=== PATIENT | male | born 1940 | race Caucasian/White ===

== ENCOUNTER 2016-08-04 14:31 | Emergency (ER) | payer OTHER ==
[~2016-08-04] VITALS: Ht 167.6 cm; Wt 67.4 kg
[~2016-08-04 14:31] MED LIST: ATOR40TA16 PO; CHOL1TAB PO; CITA20TA4 PO; COQ-30CA2 PO; FINA5TAB2 PO; LEVO50TA4 PO; MIDO10TA PO; RENACAP2 PO; TAMS0.4C4 PO
[2016-08-04 14:40] VITALS: BP 113/52; PULSE 98; RESP 20; TEMP 98.3; O2SAT 97
[2016-08-04] MEDS ORDERED: POTA10SO12 PO (15:27)
[2016-08-04] MEDS ORDERED: SEVEL800 PO (15:27)
[2016-08-04] MEDS ORDERED: CHLO25CA2 PO (15:27)
[2016-08-04] MEDS ORDERED: MIRA33504 PO (15:27)
[2016-08-04] MEDS ORDERED: CALC1CAP PO (15:27)
[2016-08-04] MEDS ORDERED: MEGASUS2 PO (15:27)
[2016-08-04] MEDS ORDERED: SODIUM CHLORIDE 0.9% FLUSH 5 ML FLUSH IVF PRN (15:30)
--- NOTE | 2016-08-04 15:37 | PD ---
HPI Chief Complaint: Respiratory Symptoms Time Seen by Provider: 15:10 Travel History International Travel<30 days: No Contact w/Intl Traveler<30days: No Traveled to known affect area: No History of Present Illness HPI Patient is a 75-year-old male who presents to emergency room with complaints of shortness of breath. Patient reports that he has been feeling short of breath for the past 2 months. Patient reports that he has follow-up with his primary care doctor who performed a workup on him and ultimately sent [facility] to [facility] shift [facility] for further evaluation of his shortness of breath. Patient reports that he did follow up with Dr. Dobbs in the office, he had a echocardiogram performed as well as a stress test which were all negative. Patient reports that he was told to follow-up in the ER and was told that his shortness of breath was not due to his heart. Patient reports that he has been feeling increasingly short of breath and no one can figure out why he is so sob. 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 His supervisor [employer] department is Dr Murguia and Dr. Nair. Denies fever/chills. Denies cough/congestion. Denies n/v. Patient also reports that he has been getting hiccups at nighttime. Patient reports that every night, hiccups come on by himself, reports that he hiccups so much, it takes his breath away. Patient currently without any hiccups at this time. Denies chest pain. No cough/congestion. PFSH Past Medical History Arthritis: No Asthma: No Autoimmune Disease: No Heart Rhythm Problems: No Cancer: Yes (AMLOIDOSIS) Cardiovascular Problems: Yes High Cholesterol: Yes Chest Pain: No Congestive Heart Failure: No COPD: No Cerebrovascular Accident: Yes (TIA) Diabetes: No Diminished Hearing: No Endocrine: Yes Gastrointestinal Disorders: Yes (ACID REFLUX) GERD: Yes Genitourinary: No Headaches: No Hepatitis: No Hiatal Hernia: No Hypertension: Yes Immune Disorder: Yes (AMYLOIDOSIS) Implanted Vascular Access Dvce: No Kidney Stones: No Musculoskeletal: No Psychiatric: No Reproductive: No Respiratory: No Migraines: No Renal Failure: No Seizures: No Sleep Apnea: No Thyroid Disease: Yes (HYPO) Ulcer: No Past Surgical History Abdominal Surgery: No AICD: No Body Medical Devices: PORT IN UPPER R CHEST (2011) Cardiac Surgery: No Ear Surgery: No Endocrine Surgery: No Eye Surgery: Yes (CATARRACTS) Genitourinary Surgery: No Gynecologic Surgery: No Neurologic Surgery: No Oral Surgery: No Pacemaker: No Thoracic Surgery: No Other Surgery: Yes (peritoneal dialysis catheter placement) Social History Alcohol Use: No Tobacco Use: No (QUIT 1974) Substance Use: No Allergies-Medications (Allergen,Severity, Reaction): Coded Allergies: No Known Allergies (Unverified , 08/04/16) Reported Meds & Prescriptions Reported Meds & Active Scripts Active Reported Chlordiazepoxide (Chlordiazepoxide HCl) 25 Mg Cap 25 Mg PO HS Potassium Chloride Liq (Potassium Chloride) 20 Meq/15 Ml Soln 20 Meq PO DAILY Renvela (Sevelamer Carbonate) 800 Mg Tab 800 Mg PO TID PRN Calcium Acetate (Phosphate Binder) 667 Mg Cap 667 Mg PO TID Megace ES Liq (Megestrol ES Liq) 625 Mg/5 Ml Susp 625 Mg PO DAILY Miralax Powder (Polyethylene Glycol 3350 Powder) 17 Gm Powd 17 Gm PO DAILY Mix and dissolve one measuring cap-ful (17 grams) in water or juice. D3-1000 (Cholecalciferol) 1,000 Unit Tab 1 Tab PO BID Coq-10 (Coenzyme Q10 (Ubidecarenone)) 30 Mg Cap 200 Mg PO HS Renal Vitamin (B-Complex W/ C & Folic Acid) 1 Cap 1 Cap PO DAILY If on dialysis, take after treatment. Tamsulosin (Tamsulosin HCl) 0.4 Mg Cap 0.4 Mg PO HS Citalopram (Citalopram Hydrobromide) 20 Mg Tab 20 Mg PO HS Finasteride 5 Mg Tab 5 Mg PO DAILY Do not crush. Levothyroxine (Levothyroxine Sodium) 50 Mcg Tab 50 Mcg PO DAILY Midodrine 10 Mg Tab 20 Mg PO BID Atorvastatin (Atorvastatin Calcium) 40 Mg Tab 40 Mg PO HS Review of Systems General / Constitutional: No: Fever Eyes: No: Visual changes HENT: No: Headaches Cardiovascular: No: Chest Pain or Discomfort Respiratory: Positive: Shortness of Breath Gastrointestinal: No: Abdominal Pain Genitourinary: No: Dysuria Musculoskeletal: No: Pain Skin: No Rash Neurologic: No: Weakness Psychiatric: No: Depression Endocrine: No: Polydipsia Hematologic/Lymphatic: No: Easy Bruising Physical Exam Narrative GENERAL: No acute distress, nontoxic SKIN: Warm and dry. Pale appearing HEAD: Atraumatic. Normocephalic. EYES: No injection or drainage. ENT: No nasal bleeding or discharge. Mucous membranes pink and moist. NECK: Trachea midline. No JVD. CARDIOVASCULAR: Regular rate and rhythm. No murmur appreciated. RESPIRATORY: No accessory muscle use. Clear to auscultation. Breath sounds equal bilaterally. GASTROINTESTINAL: Abdomen soft, non-tender, nondistended. Hepatic and splenic margins not palpable. MUSCULOSKELETAL: No obvious deformities. No clubbing. No cyanosis. No edema. NEUROLOGICAL: Awake and alert. No obvious cranial nerve deficits. Motor grossly within normal limits. Normal speech. PSYCHIATRIC: Appropriate mood and affect; insight and judgment normal. Data Data Last Documented VS Vital Signs Date Time Temp Pulse Resp B/P Pulse Ox O2 Delivery O2 Flow Rate FiO2 08/04/16 18:54 81 18 136/78 96 Nasal Cannula 1 08/04/16 14:40 98.3 Orders Electrocardiogram (08/04/16 15:22) B-Type Natriuretic Peptide (08/04/16 15:22) Ckmb (Isoenzyme) Profile (08/04/16 15:22) Complete Blood Count With Diff (08/04/16 15:22) Comprehensive Metabolic Panel (08/04/16 15:22) Prothrombin Time / Inr (Pt) (08/04/16 15:22) Act Partial Throm Time (Ptt) (08/04/16 15:22) Troponin I (08/04/16 15:22) Chest, Single Ap (08/04/16 15:22) Ecg Monitoring (08/04/16 15:22) Iv Access Insert/Monitor (08/04/16 15:22) Oximetry (08/04/16 15:22) Sodium Chloride 0.9% Flush (Ns Flush) (08/04/16 15:30) Arterial Blood Gas (Abg) (08/04/16 ) CKMB (08/04/16 15:35) CKMB% (08/04/16 15:35) Ventilation & Perfusion Scan (08/04/16 ) Us Leg Venous Doppler Bilat (08/04/16 ) Calcium Gluconate Inj (Calcium Gluconate (08/04/16 17:00) Labs Laboratory Tests Test 08/04/16 08/04/16 15:35 16:15 White Blood Count 11.6 TH/MM3 Red Blood Count 3.24 MIL/MM3 Hemoglobin 10.4 GM/DL Hematocrit 30.7 % Mean Corpuscular Volume 94.7 FL Mean Corpuscular Hemoglobin 32.0 PG Mean Corpuscular Hemoglobin 33.8 % Concent Red Cell Distribution Width 15.7 % Platelet Count 246 TH/MM3 Mean Platelet Volume 6.4 FL Neutrophils (%) (Auto) 71.2 % Lymphocytes (%) (Auto) 19.1 % Monocytes (%) (Auto) 7.6 % Eosinophils (%) (Auto) 0.4 % Basophils (%) (Auto) 1.7 % Neutrophils # (Auto) 8.3 TH/MM3 Lymphocytes # (Auto) 2.2 TH/MM3 Monocytes # (Auto) 0.9 TH/MM3 Eosinophils # (Auto) 0.0 TH/MM3 Basophils # (Auto) 0.2 TH/MM3 CBC Comment DIFF FINAL Differential Comment Prothrombin Time 10.7 SEC Prothromb Time International 1.0 RATIO Ratio Activated Partial 21.3 SEC Thromboplast Time Sodium Level 147 MEQ/L Potassium Level 4.3 MEQ/L Chloride Level 110 MEQ/L Carbon Dioxide Level 23.2 MEQ/L Anion Gap 14 MEQ/L Blood Urea Nitrogen 74 MG/DL Creatinine 8.00 MG/DL Estimat Glomerular Filtration 7 ML/MIN Rate Random Glucose 129 MG/DL Calcium Level 7.3 MG/DL Protein Corrected Calcium 9.0 MG/DL Total Bilirubin 0.3 MG/DL Aspartate Amino Transf 20 U/L (AST/SGOT) Alanine Aminotransferase 44 U/L (ALT/SGPT) Alkaline Phosphatase 36 U/L Total Creatine Kinase 124 U/L Creatine Kinase MB 2.6 NG/ML Troponin I 0.06 NG/ML B-Type Natriuretic Peptide 94 PG/ML Total Protein 4.2 GM/DL Albumin 1.7 GM/DL Blood Gas Puncture Site LT RADIAL Blood Gas Patient Temperature 98.6 Blood Gas HCO3 21 mmol/L Blood Gas Base Excess -2.3 mmol/L Blood Gas Oxygen Saturation 93 % Arterial Blood pH 7.43 Arterial Blood Partial 33 mmHG Pressure CO2 Arterial Blood Partial 81 mmHG Pressure O2 Arterial Blood Oxygen Content 13.1 Vol % Arterial Blood 1.6 % Carboxyhemoglobin Arterial Blood Methemoglobin 1.3 % Blood Gas Hemoglobin 9.9 G/DL Oxygen Delivery Device ROOM AIR Blood Gas Inspired Oxygen 21 % MDM Medical Decision Making Medical Screen Exam Complete: Yes Emergency Medical Condition: Yes Interpretation(s) Vital Signs Date Time Temp Pulse Resp B/P Pulse Ox O2 Delivery O2 Flow Rate FiO2 08/04/16 14:40 98.3 98 20 113/52 97 Differential Diagnosis PE, pneumothorax, pneumonia, arrhythmia, electrolyte abnormality, anemia Narrative Course Patient is 75-year-old male with history of end-stage renal disease on peritoneal dialysis - presents to emergency room for evaluation of shortness of breath. Patient reports that he has been feeling short of breath for the past 2 months. Patient reports that symptoms have been getting progressively worse. Patient reports that he has followed-up with his primary care doctor as well as [facility] shift lead for his symptoms and reports that no one can tell him why he is so short of breath. Patient here for evaluation of symptoms. Patient 97% on Room air, vss, pulse 98, bp 113/52. ABG, xray of chest ordered. Will continue to monitor patient. EKG at 1543: nsr at 81bpm, qt/qtc: 400/436, no acute st or t wave changes CBC WBC 11.6 Hemoglobin 10.4 Hematocrit 30.7 Platelets 246 BMP Sodium 147 Chloride 110 Potassium 4.3 BUN 14 Creatinine 8.0 Calcium 7.3 BNP 94 Troponin 0.06 Chest x-ray: Mild hyperinflation with some bullae otherwise negative for acute process Patient reevaluated, patient reports that he still feels short of breath, feels the same as he did before. Understands pending studies Ultrasound of legs as well as VQ scan pending Last Impressions Lower Extremity Ultrasound 08/04/16 0000 Signed Impressions: Service Date/Time: Thursday, August 04, 2016 16:45 - CONCLUSION: No evidence of lower extremity DVT on the right or left. Medhat Kelly MD All labs and all studies reviewed with patient and his if at bedside. Patient with a mildly elevated troponin of 0.06 - most likely from end-stage renal disease as patient is on peritoneal dialysis daily. Patient with no complaints at this time. Patient reports that he is feeling better. I discussed need to follow-up with his primary care doctor. Signs and symptoms of when to return to the emergency room. Diagnosis Primary Impression: Shortness of breath Patient Instructions: General Instructions Additional Instructions: Please give patient a copy of all labs and all studies at discharge Please return to emergency room as needed Please follow-up with your primary care doctor and bring your labs and studies to the office for follow-up Please return to emergency room if symptoms progress or worsen Disposition: 01 DISCHARGE HOME Condition: Stable Linda Pinto DO Aug 04, 2016 15:37
[2016-08-04 15:45] VITALS: O2SAT 97
[2016-08-04 15:46] LABS: AUTOMATED NEUTROPHIL # 8.3 TH/MM3 (1.8-7.7); BASOPHIL # 0.2 TH/MM3 (0-0.2); BASOPHIL % 1.7 % (0.0-2.0); EOSINOPHIL % 0.4 % (0.0-4.0); HEMATOCRIT 30.7 % (39.0-51.0); LYMPH % 19.1 % (9.0-44.0); LYMPHOCYTE # 2.2 TH/MM3 (1.0-4.8); MEAN CELL VOLUME 94.7 FL (80.0-100.0); MEAN CORPUSCULAR HGB CONC 33.8 % (32.0-36.0); MONO % 7.6 % (0.0-8.0); NEUT % 71.2 % (16.0-70.0); PLATELET COUNT 246 TH/MM3 (150-450); RED BLOOD COUNT 3.24 MIL/MM3 (4.50-5.90); RED CELL DISTRIBUTION WIDTH 15.7 % (11.6-17.2); WHITE BLOOD COUNT 11.6 TH/MM3 (4.0-11.0)
[2016-08-04 15:47] LABS: HEMO FLAGS DIFF FINAL
[2016-08-04 15:55] VITALS: O2SAT 95
[2016-08-04 16:00] VITALS: BP 133/64; PULSE 81; RESP 22; O2SAT 95
[2016-08-04 16:07] LABS: CHLORIDE 110 MEQ/L (98-107); POTASSIUM 4.3 MEQ/L (3.5-5.1); SODIUM (NA) 147 MEQ/L (136-145)
[2016-08-04 16:12] LABS: APTT (PATIENT) 21.3 SEC (24.3-30.1); PROTHROMBIN TIME - PATIENT 10.7 SEC (9.8-11.6)
--- NOTE | 2016-08-04 16:12 | RADHPO ---
EXAM DATE/TIME: 08/04/2016 15:50 [facility] COMPARISON: CHEST SINGLE AP, May 28, 2016, 16:21. INDICATIONS: Shortness of breath. MEDICAL HISTORY: Hypertension. Hypercholesterolemia. Hypothyroidism. TIA, Hyperlipidemia, Shingles, GERD, Renal fa ilure, Enlarged prostate, Anxiety, Amyloidosis, Anemia SURGICAL HISTORY: Tonsillectomy. Dialysis cath, Bone marrow biopsy, Kidney biopsy, Infusaport ENCOUNTER: Initial ACUITY: 1 day PAIN SCORE: 1/10 LOCATION: Bilateral chest FINDINGS: [id number] is in good position on the right. Old rib fractures are seen on the left. Minimal bul lae are noted. Heart and pulmonary vascularity is normal. CONCLUSION: Mild hyperinflation with some bullae, otherwise negative for an acute process. Rock Evans MD FACR on August 04, 2016 at 16:05 Board Certified Radiologist. This report was verified electronically.
[2016-08-04 16:15] VITALS: O2SAT 96
[2016-08-04 16:23] LABS: BLOOD GAS BASE EXCESS -2.3 mmol/L (-2-2); BLOOD GAS CARBOXYHEMOGLOBIN 1.6 % (0-4); BLOOD GAS HCO3 21 mmol/L (22-26); BLOOD GAS METHEMOGLOBIN 1.3 % (0-2); BLOOD GAS O2 HGB SATURATION 93 % (90-100); BLOOD GAS OXYGEN CONTENT 13.1 Vol % (12.0-20.0); BLOOD GAS PCO2 33 mmHG (38-42); BLOOD GAS PO2 81 mmHG (61-120); BLOOD GAS TOTAL HGB 9.9 G/DL (12.0-16.0); CRITICAL VALUE NO; DRAW SITE LT RADIAL; FIO2 21 %; NUMBER OF ARTERIAL PUNCTURES 1; OXYGEN DEVICE ROOM AIR; STAT YES; TEMP CORR TO 98.6; ULNAR PULSE PRESENT
[2016-08-04 16:27] LABS: ALKALINE PHOSPHATASE 36 U/L (45-117); ANION GAP 14 MEQ/L (5-15); AST (GOT) 20 U/L (15-37); BICARBONATE 23.2 MEQ/L (21.0-32.0); BLOOD UREA NITROGEN 74 MG/DL (7-18); CREATINE KINASE 124 U/L (39-308); GLOMERULAR FILTRATION RATE 7 ML/MIN (>89); TOTAL BILIRUBIN ADULT 0.3 MG/DL (0.2-1.0)
[2016-08-04 16:28] LABS: ALT (GPT) 44 U/L (12-78)
[2016-08-04 16:58] LABS: CKMB 2.6 NG/ML (0.5-3.6)
[2016-08-04] MEDS ORDERED: CALCIUM GLUCONATE INJ 1 GM in DEXTROSE 5% IN WATER 100ML INJ 100 ML IV ONE ×2 (17:00)
--- NOTE | 2016-08-04 17:47 | RADHPO ---
EXAM DATE/TIME: 08/04/2016 16:45 [facility] COMPARISON: No previous studies available for comparison. INDICATIONS : Bilateral leg swelling. MEDICAL HISTORY : Hypercholesterolemia. Gastroesophageal reflux disease. Hypothyroidism. Hypertension. Tremors. UTI. Re nal failure. Shingles. Anemia. Amyloidosis. SURGICAL HISTORY : Tonsillectomy. Dialysis. Kidney biopsy. Bone marrow biopsy. Right port placement. ENCOUNTER: Initial ACUITY: 3 days PAIN SCORE: 3/10 LOCATION: Bilateral legs. TECHNIQUE: Venous ultrasound of the left and right leg was performed from the inguinal ligament to the proximal calf. Real-time, color Doppler and spectral tracing, compression and augmentation techniques were us ed. FINDINGS: RIGHT LEG: There is normal compressibility of the deep venous system from the inguinal region to the proximal ca lf. No echogenic clot is seen in the lumen of the common femoral, femoral, popliteal, and posterior tibial veins. There is a normal response of the venous system to proximal and distal augmentation an d respiration. LEFT LEG: There is normal compressibility of the deep venous system from the inguinal region to the proximal ca lf. No echogenic clot is seen in the lumen of the common femoral, femoral, popliteal, and posterior tibial veins. There is a normal response of the venous system to proximal and distal augmentation an d respiration. CONCLUSION: No evidence of lower extremity DVT on the right or left. Medhat Klely MD on August 04, 2016 at 17:45 Board Certified Radiologist. This report was verified electronically.
[2016-08-04 18:54] VITALS: BP 136/78; PULSE 81; RESP 18; O2SAT 96
--- NOTE | 2016-08-04 18:56 | RADHPO ---
EXAM DATE/TIME: 08/04/2016 18:33 [facility] COMPARISON: No previous studies available for comparison. INDICATIONS : Dyspnea for two months. DOSE: 8.5 mCi Tc99m MAA IV 0.93 mCi Tc99m DTPA aerosol MEDICAL HISTORY : Renal disease, end stage. Hypertension. Hypothyroidism. Amloidosis and essential tremors. SURGICAL HISTORY : Cataracts and port. ENCOUNTER: Initial ACUITY: 2 months PAIN SCALE: 0/10 LOCATION: chest TECHNIQUE: Following five minutes of tidal breathing of DTPA aerosol, planar images of the lungs were performed in eight projections. The patient was then injected with MAA, and eight-view perfusion scan was perf ormed. FINDINGS: There is a homogeneous pattern of aerosol delivery to the periphery of both lungs. No focal ventilat ory defects are seen. The perfusion lung scan demonstrates a homogenous pattern of uptake in both lungs. No segmental or s ubsegmental defects are seen. CONCLUSION: Normal examination. Amrita Banks MD on August 04, 2016 at 18:55 Board Certified Radiologist. This report was verified electronically.
--- NOTE | 2016-08-06 12:06 | EKG ---
Date Performed: 08/04/2016 Time Performed: 15:43:10 PTAGE: 75 years EKG: Sinus rhythm Leftward axis Lateral T wave changes are nonspecific Since previous tracing, no significant change n oted Borderline ECG PREVIOUS TRACING : 05/28/2016 15.25 DOCTOR: Bro Barry Interpretating Date/Time 08/06/2016 12:05:48
== END 2016-08-04 20:11 | disposition home or self-care (01) ==
LOC: PHED 14:31
DX: R06.02 Shortness of breath (principal); R94.31 Abnormal electrocardiogram [ECG] [EKG]; N18.6 End stage renal disease; E85.9 Amyloidosis, unspecified; E78.00 Pure hypercholesterolemia, unspecified; K21.9 Gastro-esophageal reflux disease without esophagitis; I12.0 Hypertensive chronic kidney disease with stage 5 chronic kidney disease or end stage renal disease; E07.9 Disorder of thyroid, unspecified; Z86.73 Personal history of transient ischemic attack (TIA), and cerebral infarction without residual deficits
CPT/HCPCS: 36600; 71010; 78582; 80053; 82550; 82552; 82805; 83880; 84484; 85025; 85610; 85730; 93005; 93970; 96365; 96366; 99285; A9540; A9567; J0610

== ENCOUNTER 2016-11-13 10:42 | Emergency (ER) | payer OTHER ==
[~2016-11-13] VITALS: Ht 167.6 cm; Wt 65.0 kg
[~2016-11-13 10:42] MED LIST changes: +CALC1CAP PO; +CHLO25CA2 PO; +MEGASUS2 PO; +MIRA33504 PO; +POTA10SO12 PO; +SEVEL800 PO
[2016-11-13 10:47] VITALS: BP 112/58; PULSE 106; RESP 20; TEMP 97.1; O2SAT 96
[2016-11-13] MEDS ORDERED: [UNRECOGNIZED DRUG - OTHER] (11:06)
[2016-11-13 11:15] VITALS: BP 133/59; PULSE 98; RESP 15; O2SAT 93
[2016-11-13] MEDS ORDERED: SODIUM CHLORIDE 0.9% FLUSH 10 ML FLUSH IV FLUSH PRN (11:15)
[2016-11-13 11:22] VITALS: O2SAT 94
[2016-11-13 11:25] LABS: AUTOMATED NEUTROPHIL # 9.6 TH/MM3 (1.8-7.7); BASOPHIL % 0.4 % (0.0-2.0); EOSINOPHIL # 0.1 TH/MM3 (0-0.4); EOSINOPHIL % 0.6 % (0.0-4.0); HEMATOCRIT 31.5 % (39.0-51.0); LYMPH % 16.4 % (9.0-44.0); MEAN CELL VOLUME 97.3 FL (80.0-100.0); MEAN CORPUSCULAR HEMOGLOBIN 32.5 PG (27.0-34.0); MEAN CORPUSCULAR HGB CONC 33.4 % (32.0-36.0); MONO % 4.9 % (0.0-8.0); NEUT % 77.7 % (16.0-70.0); PLATELET COUNT 284 TH/MM3 (150-450); RED BLOOD COUNT 3.23 MIL/MM3 (4.50-5.90); RED CELL DISTRIBUTION WIDTH 16.1 % (11.6-17.2); WHITE BLOOD COUNT 12.3 TH/MM3 (4.0-11.0)
[2016-11-13 11:27] LABS: HEMO FLAGS DIFF FINAL
[2016-11-13 11:36] LABS: BICARBONATE 22.9 MEQ/L (21.0-32.0)
[2016-11-13 12:00] VITALS: BP 106/57; PULSE 88; RESP 15; O2SAT 94
--- NOTE | 2016-11-13 12:33 | PD ---
HPI Chief Complaint: Cardiac Complaint Time Seen by Provider: 10:52 Travel History International Travel<30 days: No Contact w/Intl Traveler<30days: No Traveled to known affect area: No History of Present Illness HPI 76-year-old male arrives due to orthostatic tachycardia which occurred this morning. Evidently his heart rate was about 75 and he stood up and increased to 150. He did not lose consciousness or fall or feel dizzy. The who provides most of the history states that it has since resolved since arriving to the ER. The patient has kidney disease and undergoes peritoneal dialysis nightly. He has been doing this every single night. For the last 2 days he has had worsening of his essential tremor. He states it comes and goes. He states he's tried various medications for it and none helps. No additional complaint offered. Urination normal. No chest pain or short of breath. No abdominal pain. PFSH Past Medical History Arthritis: No Asthma: No Autoimmune Disease: No Heart Rhythm Problems: No Cancer: Yes (Amyloidosis ) Cardiovascular Problems: Yes High Cholesterol: Yes Chest Pain: No Congestive Heart Failure: No COPD: No Cerebrovascular Accident: Yes (TIA) Diabetes: No Dialysis: Yes (PARITNEAL) Diminished Hearing: No Endocrine: Yes Gastrointestinal Disorders: Yes (ACID REFLUX) GERD: Yes Genitourinary: No Headaches: No Hepatitis: No Hiatal Hernia: No Hypertension: Yes Immune Disorder: Yes (AMYLOIDOSIS) Implanted Vascular Access Dvce: No Kidney Stones: No Musculoskeletal: No Neurologic: Yes (Numbness feet) Psychiatric: No Reproductive: No Respiratory: No Migraines: No Renal Failure: No Seizures: No Sleep Apnea: No Thyroid Disease: Yes (Hypo-) Ulcer: No Past Surgical History Abdominal Surgery: No AICD: No Body Medical Devices: PD catheter, RU chest port Cardiac Surgery: No Ear Surgery: No Endocrine Surgery: No Eye Surgery: Yes (Cataracts ) Genitourinary Surgery: No Gynecologic Surgery: No Neurologic Surgery: No Oral Surgery: No Pacemaker: No Thoracic Surgery: No Other Surgery: Yes (PD catheter placement, chemotherapy port placement RU chest , kidney BX) Social History Alcohol Use: No Tobacco Use: No (QUIT 1974) Substance Use: No Allergies-Medications (Allergen,Severity, Reaction): Coded Allergies: No Known Allergies (Unverified , 11/13/16) Reported Meds & Prescriptions Reported Meds & Active Scripts Active Reported [Miranol] Potassium Chloride Liq (Potassium Chloride) 20 Meq/15 Ml Soln 10 Meq PO DAILY Renvela (Sevelamer Carbonate) 800 Mg Tab 800 Mg PO TID PRN Miralax Powder (Polyethylene Glycol 3350 Powder) 17 Gm Powd 17 Gm PO DAILY Mix and dissolve one measuring cap-ful (17 grams) in water or juice. D3-1000 (Cholecalciferol) 1,000 Unit Tab 1 Tab PO BID Coq-10 (Coenzyme Q10 (Ubidecarenone)) 30 Mg Cap 200 Mg PO HS Tamsulosin (Tamsulosin HCl) 0.4 Mg Cap 0.4 Mg PO HS Finasteride 5 Mg Tab 5 Mg PO DAILY Do not crush. Levothyroxine (Levothyroxine Sodium) 50 Mcg Tab 50 Mcg PO DAILY Midodrine 10 Mg Tab 10 Mg PO BID Atorvastatin (Atorvastatin Calcium) 40 Mg Tab 40 Mg PO HS Review of Systems Except as stated in HPI: all other systems reviewed are Neg General / Constitutional: No: Fever Neurologic: Positive: Tremor Physical Exam Narrative GENERAL: 76-year-old male pleasant, conversant, in no marked distress SKIN: Focused skin assessment warm/dry. HEAD: Atraumatic. Normocephalic. EYES: Pupils equal and round. No scleral icterus. No injection or drainage. ENT: No nasal bleeding or discharge. Mucous membranes pink and moist. NECK: Trachea midline. No JVD. CARDIOVASCULAR: Regular rate and rhythm. No murmur appreciated. RESPIRATORY: No accessory muscle use. Clear to auscultation. Breath sounds equal bilaterally. GASTROINTESTINAL: Abdomen soft, non-tender, nondistended. Hepatic and splenic margins not palpable. Peritoneal dialysis tube in the right abdomen appears clean dry and intact at site of insertion. MUSCULOSKELETAL: No obvious deformities. No clubbing. No cyanosis. No edema. NEUROLOGICAL: Awake and alert. No obvious cranial nerve deficits. There is a generalized fine tremor. Speech memory mentation normal. PSYCHIATRIC: Appropriate mood and affect; insight and judgment normal. Data Data Last Documented VS Vital Signs Date Time Temp Pulse Resp B/P Pulse Ox O2 Delivery O2 Flow Rate FiO2 11/13/16 13:13 86 15 106/70 96 11/13/16 11:22 Room Air 11/13/16 10:47 97.1 Heart rate 86 at 12:30 p.m. Orders Basic Metabolic Panel (Bmp) (11/13/16 11:10) Complete Blood Count With Diff (11/13/16 11:10) Iv Access Insert/Monitor (11/13/16 11:10) Ecg Monitoring (11/13/16 11:10) Oximetry (11/13/16 11:10) Sodium Chloride 0.9% Flush (Ns Flush) (11/13/16 11:15) Potassium Chloride (Kcl) (11/13/16 12:45) Electrocardiogram (11/13/16 ) Labs Laboratory Tests Test 11/13/16 11:19 White Blood Count 12.3 TH/MM3 Red Blood Count 3.23 MIL/MM3 Hemoglobin 10.5 GM/DL Hematocrit 31.5 % Mean Corpuscular Volume 97.3 FL Mean Corpuscular Hemoglobin 32.5 PG Mean Corpuscular Hemoglobin 33.4 % Concent Red Cell Distribution Width 16.1 % Platelet Count 284 TH/MM3 Mean Platelet Volume 6.2 FL Neutrophils (%) (Auto) 77.7 % Lymphocytes (%) (Auto) 16.4 % Monocytes (%) (Auto) 4.9 % Eosinophils (%) (Auto) 0.6 % Basophils (%) (Auto) 0.4 % Neutrophils # (Auto) 9.6 TH/MM3 Lymphocytes # (Auto) 2.0 TH/MM3 Monocytes # (Auto) 0.6 TH/MM3 Eosinophils # (Auto) 0.1 TH/MM3 Basophils # (Auto) 0.0 TH/MM3 CBC Comment DIFF FINAL Differential Comment Sodium Level 140 MEQ/L Potassium Level 3.0 MEQ/L Chloride Level 103 MEQ/L Carbon Dioxide Level 22.9 MEQ/L Anion Gap 14 MEQ/L Blood Urea Nitrogen 56 MG/DL Creatinine 9.50 MG/DL Estimat Glomerular Filtration 5 ML/MIN Rate Random Glucose 110 MG/DL Calcium Level 8.1 MG/DL [facility] Medical Decision Making Medical Screen Exam Complete: Yes Emergency Medical Condition: Yes Medical Record Reviewed: Yes Differential Diagnosis Electrolyte imbalance, uremia, arrhythmia, essential tremor Narrative Course CBC & BMP Diagram 11/13/16 11:19 EKG reveals a sinus rhythm with a rate of 104 The patient's says he was discharged from [facility] just 2 weeks ago where. Extensive workup was done. He also underwent a brain MR just recently. EKG was performed and reveals a sinus rhythm with PACs, rate 85 Diagnosis Primary Impression: Tremor Additional Impression: Hypokalemia Referrals: Terry Nair MD 2 days Additional Instructions: You have a choice when it comes to health care, and we are glad that you chose [facility]. Hopefully, we have met your expectations on today's visit. You are welcome to return to [facility] at any time, as we are committed to meeting the health care needs of our community. Med/Other Pt SpecificInfo: No Change to Meds Disposition: 01 DISCHARGE HOME Condition: Yordy Gutierrez MD November 13, 2016 12:33
[2016-11-13] MEDS ORDERED: POTASSIUM CHLORIDE 20 MEQ CONTROLLED RELEASE TAB PO ONE (12:45)
[2016-11-13 13:13] VITALS: BP 106/70
--- NOTE | 2016-11-14 16:13 | EKG ---
Date Performed: 11/13/2016 Time Performed: 10:51:18 PTAGE: 76 years EKG: Sinus tachycardia with PAC(s) Left axis deviation Compared to previous tracing sinus rate h as increased Borderline ECG PREVIOUS TRACING : 08/04/2016 15.43 DOCTOR: Roverto Husain Interpretating Date/Time 11/14/2016 16:12:35
--- NOTE | 2016-11-14 16:14 | EKG ---
Date Performed: 11/13/2016 Time Performed: 12:43:54 PTAGE: 76 years EKG: Sinus rhythm with PAC(s) Left axis deviation Compared to the previous tracing sinus rate has decreased Borderline ECG PREVIOUS TRACING : 11/13/2016 10.51 DOCTOR: Roverto Husain Interpretating Date/Time 11/14/2016 16:12:49
== END 2016-11-13 13:15 | disposition home or self-care (01) ==
LOC: PHED 10:42
DX: R25.1 Tremor, unspecified (principal); E87.6 Hypokalemia; I49.1 Atrial premature depolarization; R00.0 Tachycardia, unspecified; E78.00 Pure hypercholesterolemia, unspecified; K21.9 Gastro-esophageal reflux disease without esophagitis; E85.9 Amyloidosis, unspecified; N28.9 Disorder of kidney and ureter, unspecified; Z86.73 Personal history of transient ischemic attack (TIA), and cerebral infarction without residual deficits
CPT/HCPCS: 80048; 85025; 93005

== ENCOUNTER 2017-02-21 17:24 | Inpatient (IN) | payer OTHER, MEDICARE ==
[~2017-02-21] VITALS: Ht 170.2 cm; Wt 71.3 kg
[~2017-02-21 17:24] MED LIST changes: -CALC1CAP PO; -CHLO25CA2 PO; -CITA20TA4 PO; -MEGASUS2 PO; -RENACAP2 PO; +[UNRECOGNIZED DRUG - OTHER]
[2017-02-21 17:30] VITALS: BP 144/71; PULSE 88; RESP 20; TEMP 98.4; O2SAT 97
[2017-02-21] MEDS ORDERED: RENATAB6 PO (17:57)
[2017-02-21] MEDS ORDERED: CHOL1CAP32 (17:57)
[2017-02-21] MEDS ORDERED: MIRA3350 PO (17:57)
[2017-02-21] MEDS ORDERED: MAGO400T2 (17:57)
[2017-02-21] MEDS ORDERED: MEGE40SU PO (17:57)
[2017-02-21] MEDS ORDERED: SODIUM CHLORIDE 0.9% FLUSH 10 ML FLUSH IVF PRN (18:00)
[2017-02-21] MEDS ORDERED: RESP: ALBUTEROL 2.5 MG/3 ML NEB (SCH) INH ONE (18:00)
--- NOTE | 2017-02-21 18:12 | RADRPT ---
EXAM DATE/TIME: 02/21/2017 17:53 [facility] COMPARISON: CHEST SINGLE AP, August 04, 2016, 15:50. INDICATIONS : Short of breath. MEDICAL HISTORY : Hypertension. Hypercholesterolemia. Hypothyroidism. TIA, Hyperlipidemia, Shingles, GERD, Renal failur e, Enlarged prostate, Anxiety, Amyloidosis, Anemia. SURGICAL HISTORY : Tonsillectomy. Dialysis cath, Bone marrow biopsy, Kidney biopsy, Infusaport. ENCOUNTER: Initial ACUITY: 1 day PAIN SCORE: 5/10 LOCATION: Bilateral chest FINDINGS: A single portable frontal view of the chest shows motion artifact. A subclavian central line is seen on the right. Hypoinflation with left basilar atelectasis. No discrete infiltrate or effusion. Heart normal in size. Old left-sided rib fractures. CONCLUSION: Minimal left basilar atelectasis. Oneil Cruz Jr., MD on February 21, 2017 at 18:09 Board Certified Radiologist. This report was verified electronically.
--- NOTE | 2017-02-21 18:22 | PD ---
HPI Chief Complaint: Respiratory Symptoms Time Seen by Provider: 17:38 Travel History International Travel<30 days: No Contact w/Intl Traveler<30days: No Traveled to known affect area: No History of Present Illness HPI The patient is 76 years old. Nightly he undergoes peritoneal dialysis and has been doing so normally. Today he arrives very tired and fatigued and short of breath. Shortness of breath worsens significantly with exertion. He said no fever. The patient's notes he is more confused than normal although even at baseline he is somewhat slow to respond to questions. He's had no fever or cough. No vomiting or diarrhea has been observed. In the ER the patient states he feels "fine." The patient nonetheless appears slightly tachypneic. No abdominal pain. Renal: Dr Nair. He still makes urine. PFSH Past Medical History Arthritis: No Asthma: No Autoimmune Disease: No Heart Rhythm Problems: No Cancer: Yes (Amyloidosis ) Cardiovascular Problems: Yes High Cholesterol: Yes Chest Pain: No Congestive Heart Failure: No COPD: No Cerebrovascular Accident: Yes (TIA) Diabetes: No Dialysis: Yes (PARITNEAL) Diminished Hearing: No Endocrine: Yes Gastrointestinal Disorders: Yes (ACID REFLUX) GERD: Yes Genitourinary: No Headaches: No Hepatitis: No Hiatal Hernia: No Hypertension: Yes Immune Disorder: Yes (AMYLOIDOSIS) Implanted Vascular Access Dvce: No Kidney Stones: No Musculoskeletal: No Neurologic: Yes (Numbness feet) Psychiatric: No Reproductive: No Respiratory: No Migraines: No Renal Failure: No Seizures: No Sleep Apnea: No Thyroid Disease: Yes (Hypo-) Ulcer: No ?: Not Past Surgical History Abdominal Surgery: No AICD: No Body Medical Devices: PD catheter, RU chest port Cardiac Surgery: No Ear Surgery: No Endocrine Surgery: No Eye Surgery: Yes (Cataracts ) Genitourinary Surgery: No Gynecologic Surgery: No Neurologic Surgery: No Oral Surgery: No Pacemaker: No Thoracic Surgery: No Other Surgery: Yes (PD catheter placement, chemotherapy port placement RU chest , kidney BX) Social History Alcohol Use: No Tobacco Use: No (QUIT 1974) Substance Use: No Allergies-Medications (Allergen,Severity, Reaction): Coded Allergies: No Known Allergies (Unverified , 11/13/16) Reported Meds & Prescriptions Reported Meds & Active Scripts Active Azithromycin 250 Mg Tab 250 Mg PO DAILY 4 Days Reported Marie-Aditi Rx (B-Complex W/ C & Folic Acid) 1 Tab 1 Tab PO DAILY Magox 400 (Magnesium Oxide) 400 Mg Tablet Megestrol Liq (Megestrol Acetate) 40 Mg/Ml Susp 400 Mg PO DAILY D3-1000 (Cholecalciferol) 1,000 Unit Cap BID Miralax Powder (Polyethylene Glycol 3350 Powder) 17 Gm Powd 17 Gm PO DAILY Mix and dissolve one measuring cap-ful (17 grams) in water or juice. Potassium Chloride Liq (Potassium Chloride) 20 Meq/15 Ml Soln 10 Meq PO DAILY Renvela (Sevelamer Carbonate) 800 Mg Tab 800 Mg PO TID PRN Coq-10 (Coenzyme Q10 (Ubidecarenone)) 30 Mg Cap 200 Mg PO HS Finasteride 5 Mg Tab 5 Mg PO DAILY Do not crush. Levothyroxine (Levothyroxine Sodium) 50 Mcg Tab 50 Mcg PO DAILY Midodrine 10 Mg Tab 10 Mg PO BID Atorvastatin (Atorvastatin Calcium) 40 Mg Tab 40 Mg PO HS Review of Systems Except as stated in HPI: all other systems reviewed are Neg General / Constitutional: No: Fever Physical Exam Narrative GENERAL: 76-year-old male well-nourished well-developed, short of breath at rest SKIN: Warm and dry. HEAD: Atraumatic. Normocephalic. EYES: Pupils equal and round. No scleral icterus. No injection or drainage. ENT: No nasal bleeding or discharge. Mucous membranes pink and moist. NECK: Trachea midline. No JVD. CARDIOVASCULAR: Regular rate and rhythm. RESPIRATORY: Coarse breath sounds at the bases bilaterally. Minimal tachypnea. GASTROINTESTINAL: Peritoneal dialysis catheter is clean dry and intact at site of insertion. The abdomen is soft. There is no tenderness. MUSCULOSKELETAL: Extremities without clubbing, cyanosis, or edema. No obvious deformities. NEUROLOGICAL: Awake and alert. No obvious cranial nerve deficits. Motor grossly within normal limits. Five out of 5 muscle strength in the arms and legs. Normal speech. PSYCHIATRIC: Appropriate mood and affect; insight and judgment normal. Data Data Last Documented VS Vital Signs Date Time Temp Pulse Resp B/P (MAP) Pulse Ox O2 Delivery O2 Flow Rate FiO2 02/21/17 19:00 76 20 97 Room Air 02/21/17 19:00 151/83 (105) 02/21/17 17:30 98.4 Vital signs reviewed Orders Orders Electrocardiogram (02/21/17 17:47) Complete Blood Count With Diff (02/21/17 17:47) Comprehensive Metabolic Panel (02/21/17 17:47) Lactic Acid Sepsis Protocol (02/21/17 17:47) Chest, Single Ap (02/21/17 17:47) Ecg Monitoring (02/21/17 17:47) Iv Access Insert/Monitor (02/21/17 17:47) Sodium Chloride 0.9% Flush (Ns Flush) (02/21/17 18:00) Albuterol Neb (Albuterol Neb) (02/21/17 18:00) Admit Order (Ed Use Only) (02/21/17 19:02) Labs Laboratory Tests Test 02/21/17 18:07 02/21/17 18:09 Vitamin B12 Level 593 PG/ML Thyroid Stimulating Hormone 3rd Gen 1.800 uIU/ML White Blood Count 11.2 TH/MM3 Red Blood Count 3.08 MIL/MM3 Hemoglobin 10.5 GM/DL Hematocrit 31.9 % Mean Corpuscular Volume 103.7 FL Mean Corpuscular Hemoglobin 34.1 PG Mean Corpuscular Hemoglobin Concent 32.9 % Red Cell Distribution Width 17.6 % Platelet Count 214 TH/MM3 Mean Platelet Volume 6.4 FL Neutrophils (%) (Auto) 77.8 % Lymphocytes (%) (Auto) 15.0 % Monocytes (%) (Auto) 6.4 % Eosinophils (%) (Auto) 0.7 % Basophils (%) (Auto) 0.1 % Neutrophils # (Auto) 8.7 TH/MM3 Lymphocytes # (Auto) 1.7 TH/MM3 Monocytes # (Auto) 0.7 TH/MM3 Eosinophils # (Auto) 0.1 TH/MM3 Basophils # (Auto) 0.0 TH/MM3 CBC Comment DIFF FINAL Differential Comment Blood Urea Nitrogen 77 MG/DL Creatinine 9.40 MG/DL Random Glucose 128 MG/DL Total Protein 4.9 GM/DL Albumin 2.0 GM/DL Calcium Level 8.7 MG/DL Alkaline Phosphatase 48 U/L Aspartate Amino Transf (AST/SGOT) 20 U/L Alanine Aminotransferase (ALT/SGPT) 28 U/L Total Bilirubin 0.3 MG/DL Sodium Level 143 MEQ/L Potassium Level 5.3 MEQ/L Chloride Level 107 MEQ/L Carbon Dioxide Level 25.8 MEQ/L Anion Gap 10 MEQ/L Estimat Glomerular Filtration Rate 5 ML/MIN Lactic Acid Level 1.3 mmol/L MDM Medical Decision Making Medical Screen Exam Complete: Yes Emergency Medical Condition: Yes Medical Record Reviewed: Yes Differential Diagnosis Hyperkalemia, volume overload, pneumonia, anemia, sepsis, UTI, spontaneous bacterial peritonitis Narrative Course CBC & BMP Diagram 02/21/17 18:09 Total Protein 4.9 L, Albumin 2.0 L, Calcium Level 8.7, Alkaline Phosphatase 48, Aspartate Amino Transf (AST/SGOT) 20, Alanine Aminotransferase (ALT/SGPT) 28, Total Bilirubin 0.3 Last 24 hours Impressions Chest X-Ray 02/21/17 1747 Signed Impressions: Service Date/Time: Sunday, February 21, 2017 17:53 - CONCLUSION: Minimal left basilar atelectasis. Oneil Cruz Jr., MD Admission for altered mental status and multiple medical complaint related disease. Possible left base pneumonia. Rocephin and azithromycin blood cultures started. Kayexalate started. Dr. Smith of the hospital service was notified of intent to admit. Patient insisted upon leaving afterwards. He has good follow-up and is reliable for return if necessary. A repeat phone call to Dr. Smith was placed at [phone] to notify. At time of reassessment, 7 PM, the patient insisted upon going home. Possibility of left lung pneumonia is not entirely excluded. The patient will be sent home. Return precautions discussed. Diagnosis Primary Impression: Altered mental status Qualified Codes: R41.82 - Altered mental status, unspecified Additional Impressions: Hyperkalemia Lung density on x-ray Admitting Information Admitting Physician Requests: Admit Referrals: Terry Nair MD call for appointment Additional Instructions: You have a choice when it comes to health care, and we are glad that you chose [facility]. Hopefully, we have met your expectations on today's visit. You are welcome to return to [facility] at any time, as we are committed to meeting the health care needs of our community. Med/Other Pt SpecificInfo: Prescription(s) given Scripts Azithromycin (Azithromycin) 250 Mg Tab 250 MG PO DAILY for Infection for 4 Days, TAB 0 Refills Prov: Yordy Swain MD 02/21/17 Disposition: 01 DISCHARGE HOME Condition: Stable Yordy Swain MD Feb 21, 2017 18:22
[2017-02-21 18:26] LABS: AUTOMATED NEUTROPHIL # 8.7 TH/MM3 (1.8-7.7); BASOPHIL % 0.1 % (0.0-2.0); EOSINOPHIL # 0.1 TH/MM3 (0-0.4); EOSINOPHIL % 0.7 % (0.0-4.0); HEMATOCRIT 31.9 % (39.0-51.0); LYMPHOCYTE # 1.7 TH/MM3 (1.0-4.8); MEAN CELL VOLUME 103.7 FL (80.0-100.0); MEAN CORPUSCULAR HEMOGLOBIN 34.1 PG (27.0-34.0); MEAN CORPUSCULAR HGB CONC 32.9 % (32.0-36.0); MONO % 6.4 % (0.0-8.0); NEUT % 77.8 % (16.0-70.0); PLATELET COUNT 214 TH/MM3 (150-450); RED BLOOD COUNT 3.08 MIL/MM3 (4.50-5.90); RED CELL DISTRIBUTION WIDTH 17.6 % (11.6-17.2); WHITE BLOOD COUNT 11.2 TH/MM3 (4.0-11.0)
[2017-02-21 18:27] LABS: HEMO FLAGS DIFF FINAL
[2017-02-21 18:34] LABS: CHLORIDE 107 MEQ/L (98-107); POTASSIUM 5.3 MEQ/L (3.5-5.1); SODIUM (NA) 143 MEQ/L (136-145)
[2017-02-21 18:38] LABS: ANION GAP 10 MEQ/L (5-15); BICARBONATE 25.8 MEQ/L (21.0-32.0); BLOOD UREA NITROGEN 77 MG/DL (7-18)
[2017-02-21 18:41] LABS: ALT (GPT) 28 U/L (12-78); AST (GOT) 20 U/L (15-37); GLOMERULAR FILTRATION RATE 5 ML/MIN (>89)
[2017-02-21 18:42] LABS: TOTAL BILIRUBIN ADULT 0.3 MG/DL (0.2-1.0)
[2017-02-21 18:44] LABS: ALKALINE PHOSPHATASE 48 U/L (45-117)
[2017-02-21 19:00] VITALS: BP 151/83; PULSE 76; RESP 18; O2SAT 97
[2017-02-21] MEDS ORDERED: AZIT250T3 PO (19:11)
[2017-02-21] MEDS ORDERED: SODIUM POLYSTYRENE SULFONATE SUSP 15 GM/60 ML CUP PO ONE (19:15)
[2017-02-21] MEDS ORDERED: AZITHROMYCIN INJ 500 MG in SODIUM CHLOR 0.9% 250 ML INJ 250 ML IV ONE (19:15)
[2017-02-21] MEDS ORDERED: cefTRIAXone INJ 1,000 MG in SODIUM CHLORIDE 0.9% INJ 100 ML IV ONE (19:15)
[2017-02-21] MEDS ORDERED: AZITHROMYCIN 250 MG TAB PO ONE (19:15)
[2017-02-21] MEDS ORDERED: SODIUM CHLORIDE 0.9% FLUSH 10 ML FLUSH IV FLUSH PRN (20:00)
[2017-02-21] MEDS ORDERED: BISACODYL 10 MG SUPP RECTAL PRN (20:00)
[2017-02-21] MEDS ORDERED: SENNOSIDES 8.6 MG TAB PO PRN (20:00)
[2017-02-21] MEDS ORDERED: NALOXONE HCL 0.4 MG/ML AMP IV PRN (20:00)
[2017-02-21] MEDS ORDERED: LACTULOSE SYRUP 20 GM/30 ML CUP PO PRN (20:00)
[2017-02-21] MEDS ORDERED: MAGNESIUM HYDROXIDE SUSP 30 ML CUP PO PRN (20:00)
[2017-02-21 20:05] VITALS: BP 150/84
[2017-02-21] MEDS ORDERED: SEVELAMER CARBONATE 800 MG TAB PO PRN (20:15)
[2017-02-21] MEDS ORDERED: cefTRIAXone INJ 1,000 MG in SODIUM CHLORIDE 0.9% INJ 100 ML IV SCH (21:00)
[2017-02-21] MEDS ORDERED: HEPARIN SODIUM - SQ 10,000 UNITS/ML VIAL SQ SCH (21:00)
[2017-02-21] MEDS ORDERED: DOCUSATE SODIUM 50 MG/SENNA 8.6 MG TAB PO SCH (21:00)
[2017-02-21] MEDS ORDERED: MIDODRINE 5 MG TAB PO SCH (21:00)
[2017-02-21] MEDS ORDERED: SODIUM CHLORIDE 0.9% FLUSH 10 ML FLUSH IV FLUSH SCH (21:00)
[2017-02-22] MEDS ORDERED: LEVOTHYROXINE SODIUM 50 MCG TAB PO SCH (06:00)
--- NOTE | 2017-02-22 08:30 | EKG ---
Date Performed: 02/21/2017 Time Performed: 17:49:35 PTAGE: 76 years EKG: Sinus rhythm NORMAL ECG NO PREVIOUS TRACING DOCTOR: Haile Welch Interpretating Date/Time 02/22/2017 08:29:26
[2017-02-22] MEDS ORDERED: AZITHROMYCIN 250 MG TAB PO SCH (20:00)
== END 2017-02-21 20:05 | disposition home or self-care (01) | DRG 948 ==
LOC: PHED 17:24 → PHEDA 19:03
PROVIDERS: ADMIT Internal Medicine; ATTEND Internal Medicine
DX: R41.82 Altered mental status, unspecified (principal); E87.5 Hyperkalemia; I12.9 Hypertensive chronic kidney disease with stage 1 through stage 4 chronic kidney disease, or unspecified chronic kidney disease; N18.9 Chronic kidney disease, unspecified; E78.00 Pure hypercholesterolemia, unspecified; K21.9 Gastro-esophageal reflux disease without esophagitis; R06.82 Tachypnea, not elsewhere classified; Z86.73 Personal history of transient ischemic attack (TIA), and cerebral infarction without residual deficits; Z99.2 Dependence on renal dialysis
CPT/HCPCS: 71010; 80053; 82607; 83605; 84443; 85025; 87040; 93005; 94664; J7613

== ENCOUNTER 2017-04-11 15:51 | Emergency (ER) | payer MEDICARE, OTHER ==
[~2017-04-11] VITALS: Ht 167.6 cm; Wt 75.0 kg
[~2017-04-11 15:51] MED LIST changes: +AZIT250T3 PO; +CHOL1CAP32; -CHOL1TAB PO; +MAGO400T2; +MEGE40SU PO; +MIRA3350 PO; -MIRA33504 PO; +RENATAB6 PO; -TAMS0.4C4 PO; -[UNRECOGNIZED DRUG - OTHER]
[2017-04-11 16:01] VITALS: BP 116/71; PULSE 85; RESP 16; TEMP 97.9; O2SAT 97
[2017-04-11] MEDS ORDERED: [UNRECOGNIZED DRUG - CODE] SQ (16:29)
[2017-04-11 16:56] LABS: AUTOMATED NEUTROPHIL # 9.9 TH/MM3 (1.8-7.7); BASOPHIL % 0.2 % (0.0-2.0); EOSINOPHIL # 0.1 TH/MM3 (0-0.4); EOSINOPHIL % 0.6 % (0.0-4.0); HEMATOCRIT 28.8 % (39.0-51.0); LYMPH % 19.9 % (9.0-44.0); LYMPHOCYTE # 2.7 TH/MM3 (1.0-4.8); MEAN CELL VOLUME 98.9 FL (80.0-100.0); MEAN CORPUSCULAR HEMOGLOBIN 33.2 PG (27.0-34.0); MEAN CORPUSCULAR HGB CONC 33.6 % (32.0-36.0); MONO % 7.8 % (0.0-8.0); NEUT % 71.5 % (16.0-70.0); PLATELET COUNT 234 TH/MM3 (150-450); RED BLOOD COUNT 2.91 MIL/MM3 (4.50-5.90); RED CELL DISTRIBUTION WIDTH 15.4 % (11.6-17.2); WHITE BLOOD COUNT 13.8 TH/MM3 (4.0-11.0)
[2017-04-11 16:58] LABS: HEMO FLAGS DIFF FINAL
[2017-04-11 17:02] LABS: CHLORIDE 100 MEQ/L (98-107); POTASSIUM 3.4 MEQ/L (3.5-5.1); SODIUM (NA) 139 MEQ/L (136-145)
[2017-04-11 17:06] LABS: ANION GAP 12 MEQ/L (5-15); BICARBONATE 27.4 MEQ/L (21.0-32.0); BLOOD UREA NITROGEN 87 MG/DL (7-18)
[2017-04-11 17:09] LABS: ALT (GPT) 19 U/L (12-78); AST (GOT) 14 U/L (15-37); GLOMERULAR FILTRATION RATE 6 ML/MIN (>89)
[2017-04-11 17:10] LABS: BLOOD, URINE LARGE (NEG); GLUCOSE,URINE 500 mg/dL (NEG); KETONE, URINE NEG (NEG); NITRITE,URINE NEG (NEG)
--- NOTE | 2017-04-11 17:10 | PD ---
HPI Chief Complaint: Respiratory Symptoms Time Seen by Provider: 16:11 Travel History International Travel<30 days: No Contact w/Intl Traveler<30days: No Traveled to known affect area: No History of Present Illness HPI Is a 76-year-old man who presents to the emergency department complaining of shortness of breath. He has a history of end-stage renal disease on peritoneal dialysis, as well as amyloidosis. He has anemia frequently. He received a Neupogen shot recently. He's had blood transfusions in the past. describes that he's been sort of "out of it" and having "trouble breathing" for the past day or so. His trouble breathing on a somewhat regular basis but worsened normal red past day or so. She also describes that he falls asleep during the day with increased somnolence and has stopped breathing with this in the past. She denies a lot of snoring at night but does state that he has intermittent periods of apnea followed by gasping breathing. History Past Medical History Narrative Medical End-stage renal disease, peritoneal dialysis, followed by Dr. Pitts/Blade Amyloidosis Reported history of TIA in the past Hyperlipidemia Hypertension Hypothyroidism Influenza Vaccination: Yes Social History Alcohol Use: No Tobacco Use: No (QUIT 1974) Allergies-Medications (Allergen,Severity, Reaction): Coded Allergies: No Known Allergies (Unverified , 04/11/17) Reported Meds & Prescriptions Reported Meds & Active Scripts Active Reported Procrit Inj (Epoetin Charly) 2,000 Unit/Ml Inj 0 SQ 3XWEEK Marie-Aditi Rx (B-Complex W/ C & Folic Acid) 1 Tab 1 Tab PO DAILY Magox 400 (Magnesium Oxide) 400 Mg Tablet Megestrol Liq (Megestrol Acetate) 40 Mg/Ml Susp 400 Mg PO DAILY D3-1000 (Cholecalciferol) 1,000 Unit Cap BID Miralax Powder (Polyethylene Glycol 3350 Powder) 17 Gm Powd 17 Gm PO DAILY Mix and dissolve one measuring cap-ful (17 grams) in water or juice. Renvela (Sevelamer Carbonate) 800 Mg Tab 800 Mg PO TID PRN Coq-10 (Coenzyme Q10 (Ubidecarenone)) 30 Mg Cap 200 Mg PO HS Finasteride 5 Mg Tab 5 Mg PO DAILY Do not crush. Levothyroxine (Levothyroxine Sodium) 50 Mcg Tab 50 Mcg PO DAILY Midodrine 10 Mg Tab 10 Mg PO BID Atorvastatin (Atorvastatin Calcium) 40 Mg Tab 40 Mg PO HS Review of Systems Except as stated in HPI: all other systems reviewed are Neg Physical Exam Narrative GENERAL: 76-year-old man, chronically ill-appearing, somewhat pale, nontoxic. SKIN: Focused skin assessment warm/dry. Pale. HEAD: Atraumatic. Normocephalic. EYES: Pupils equal and round. No scleral icterus. No injection or drainage. Scleral pallor. ENT: No nasal bleeding or discharge. Mucous membranes pink and moist. NECK: Trachea midline. No JVD. CARDIOVASCULAR: Regular rate and rhythm. No murmur appreciated. RESPIRATORY: No accessory muscle use. Clear to auscultation. Breath sounds equal bilaterally. GASTROINTESTINAL: Abdomen soft, non-tender, nondistended. Hepatic and splenic margins not palpable. MUSCULOSKELETAL: No obvious deformities. Mild pitting edema both lower extremities especially about the ankle, and in the right upper brachium. NEUROLOGICAL: Sluggish and slow to respond. Falls asleep during conversation. Strength is grossly normal otherwise. No facial asymmetry. Data Data Last Documented VS Vital Signs Date Time Temp Pulse Resp B/P (MAP) Pulse Ox O2 Delivery O2 Flow Rate FiO2 04/11/17 17:37 72 18 165/82 (109) 97 Room Air 04/11/17 16:01 97.9 Orders Orders Complete Blood Count With Diff (04/11/17 16:35) Comprehensive Metabolic Panel (04/11/17 16:35) Urinalysis - C+S If Indicated (04/11/17 16:35) Iv Access Insert/Monitor (04/11/17 16:35) Cath For Specimen (04/11/17 16:35) Electrocardiogram (04/11/17 ) Chest, Single Ap (04/11/17 ) Urine Culture (04/11/17 16:50) Labs Laboratory Tests Test 04/11/17 16:36 04/11/17 16:50 White Blood Count 13.8 TH/MM3 Red Blood Count 2.91 MIL/MM3 Hemoglobin 9.7 GM/DL Hematocrit 28.8 % Mean Corpuscular Volume 98.9 FL Mean Corpuscular Hemoglobin 33.2 PG Mean Corpuscular Hemoglobin Concent 33.6 % Red Cell Distribution Width 15.4 % Platelet Count 234 TH/MM3 Mean Platelet Volume 6.4 FL Neutrophils (%) (Auto) 71.5 % Lymphocytes (%) (Auto) 19.9 % Monocytes (%) (Auto) 7.8 % Eosinophils (%) (Auto) 0.6 % Basophils (%) (Auto) 0.2 % Neutrophils # (Auto) 9.9 TH/MM3 Lymphocytes # (Auto) 2.7 TH/MM3 Monocytes # (Auto) 1.1 TH/MM3 Eosinophils # (Auto) 0.1 TH/MM3 Basophils # (Auto) 0.0 TH/MM3 CBC Comment DIFF FINAL Differential Comment Blood Urea Nitrogen 87 MG/DL Creatinine 9.00 MG/DL Random Glucose 138 MG/DL Total Protein 4.8 GM/DL Albumin 2.1 GM/DL Calcium Level 8.4 MG/DL Alkaline Phosphatase 47 U/L Aspartate Amino Transf (AST/SGOT) 14 U/L Alanine Aminotransferase (ALT/SGPT) 19 U/L Total Bilirubin 0.2 MG/DL Sodium Level 139 MEQ/L Potassium Level 3.4 MEQ/L Chloride Level 100 MEQ/L Carbon Dioxide Level 27.4 MEQ/L Anion Gap 12 MEQ/L Estimat Glomerular Filtration Rate 6 ML/MIN Urine Color YELLOW Urine Turbidity SLIGHT Urine pH 7.0 Urine Specific Auberry 1.035 Urine Protein 300 OR GREATER mg/dL Urine Glucose (UA) 500 mg/dL Urine Ketones NEG mg/dL Urine Occult Blood LARGE Urine Nitrite NEG Urine Bilirubin NEG Urine Leukocyte Esterase NEG Urine RBC 100-200 /hpf Urine WBC 6-8 /hpf Urine WBC Clumps OCC Urine Squamous Epithelial Cells 0-5 /hpf Urine Bacteria FEW /hpf Microscopic Urinalysis Comment CULTURE INDICATED MDM Medical Decision Making Medical Screen Exam Complete: Yes Emergency Medical Condition: Yes Interpretation(s) My review of EKG: Normal sinus rhythm at a rate of 88, slightly leftward axis, normal intervals, no definite evidence of acute ischemia. Nonspecific lateral ST T-wave flattening in 1 and aVL. LABS: CBC is remarkable for mild leukocytosis. Mild anemia. CMP is remarkable for elevated BUN and creatinine. UA with hematuria and protein. No definite evidence of infection. Chest x-ray: Compensated cardiomegaly. Minimal parenchymal changes in the left base. Differential Diagnosis Weakness, anemia, sleep apnea, adverse medication effect, other Narrative Course Medical decision making INITIAL: This 76-year-old man who presents to the emergency department brought in by his . He really has no complaints but she states she's been more short of breath and confused recently. He appears very chronically ill. He looks anemic. They state his peritoneal dialysis is been going fine. We'll check labs, x-ray, urine, reassess. FINAL: Labs are overall unremarkable. Renal failure with elevated BUN. No severe anemia. No severe a slight abnormalities. No evidence of failure. I think this is probably sleep apnea with the daytime somnolence and breathing irregularities. Think this can be followed up as an outpatient. Don't see indication for admission at this point although he certainly has multiple high- risk comorbidities. Recommend close outpatient follow-up. Diagnosis Primary Impression: Shortness of breath Patient Instructions: General Instructions Additional Instructions: Follow-up with your primary doctor tomorrow. Return to the emergency department for any new or worsening symptoms. Med/Other Pt SpecificInfo: No Change to Meds Disposition: 01 DISCHARGE HOME Condition: Stable Ronald Gonzalez MD Apr 11, 2017 17:10
[2017-04-11 17:11] LABS: TOTAL BILIRUBIN ADULT 0.2 MG/DL (0.2-1.0)
[2017-04-11 17:12] LABS: ALKALINE PHOSPHATASE 47 U/L (45-117)
[2017-04-11 17:15] LABS: URINE COLOR YELLOW (YELLW/STRAW)
[2017-04-11 17:16] LABS: BACTERIA, URINE FEW /hpf; COMMENT (UR) CULTURE INDICATED; CULTURE IF INDICATED CULTURE INDICATED; RBC, URINE 100-200 /hpf (0-3); SQUAMOUS EPITHELIAL CELL URINE 0-5 /hpf (0-5)
--- NOTE | 2017-04-11 17:22 | RADRPT ---
EXAM DATE/TIME: 04/11/2017 16:50 [facility] COMPARISON: CHEST SINGLE AP, February 21, 2017, 17:53. INDICATIONS : Short of breath. MEDICAL HISTORY : None. SURGICAL HISTORY : None. ENCOUNTER: Initial ACUITY: 1 day PAIN SCORE: 0/10 LOCATION: Bilateral chest FINDINGS: [id number] in good position. Right lung is clear. Minimal parenchymal changes left base. The heart is minimally enlarged. Pulmonary vascularity is normal. Old left rib fractures ar e noted. CONCLUSION: 1. Compensated cardiomegaly. 2. Minimal parenchymal changes left base. Rock Evans MD FACR on April 11, 2017 at 17:13 Board Certified Radiologist. This report was verified electronically.
[2017-04-11 17:37] VITALS: BP 165/82; PULSE 72; RESP 18; O2SAT 97
--- NOTE | 2017-04-12 12:14 | EKG ---
Date Performed: 04/11/2017 Time Performed: 17:14:06 PTAGE: 76 years EKG: Sinus rhythm WITH OCCASIONAL SUPRAVENTRICULAR PREMATURE COMPLEXES MINIMAL ST DEPRESSION BORDERLINE ECG Compared t o prior tracing no significant change PREVIOUS TRACING : 02/21/2017 17.49 DOCTOR: Phoebe Longo Interpretating Date/Time 04/12/2017 12:12:29
== END 2017-04-11 18:13 | disposition home or self-care (01) ==
LOC: PHED 15:51
DX: R06.02 Shortness of breath (principal); N18.6 End stage renal disease; I12.0 Hypertensive chronic kidney disease with stage 5 chronic kidney disease or end stage renal disease; E78.5 Hyperlipidemia, unspecified; E03.9 Hypothyroidism, unspecified; E85.9 Amyloidosis, unspecified; Z86.73 Personal history of transient ischemic attack (TIA), and cerebral infarction without residual deficits; Z99.2 Dependence on renal dialysis
CPT/HCPCS: 71010; 80053; 81001; 85025; 87086; 93005; 99285; P9612